=== PATIENT | male | born 1960 | race Caucasian/White ===

== ENCOUNTER 2023-12-09 07:13 | Day surgery (SDC) | payer MEDICAID, MEDICARE ==
[2023-12-09] MEDS ORDERED: Propofol 200 MG/20 ML SDV IV ONE (07:14)
[2023-12-09] MEDS ORDERED: Lidocaine 2% 100 MG/5 ML Syringe IVPUSH ONE (07:14)
[2023-12-09] MEDS ORDERED: Sodium Chloride 0.9% 10 ML Syringe FLUSH PRN (07:15)
[2023-12-09] MEDS: Lactated Ringers 1,000 ML IV SCH (07:45)
[2023-12-09 11:38] VITALS: BP 110/61; PULSE 54
== END 2023-12-09 09:30 | disposition home or self-care (01) ==
LOC: FB.SDS 07:13
PROVIDERS: ATTEND Surgery
DX: Z12.11 Encounter for screening for malignant neoplasm of colon (principal); K57.30 Diverticulosis of large intestine without perforation or abscess without bleeding; Z79.82 Long term (current) use of aspirin; Z79.899 Other long term (current) drug therapy
CPT/HCPCS: 00812; J2704; J7120